=== PATIENT | male | born 1975 | race Caucasian/White ===

== ENCOUNTER 2017-09-16 01:14 | Inpatient (IN) | payer OTHER ==
[~2017-09-16] VITALS: Ht 177.8 cm; Wt 97.5 kg
[2017-09-16 01:20] VITALS: BP 151/99
--- NOTE | 2017-09-16 01:29 | NUR ---
PT AMBULATED TO BED 4
--- NOTE | 2017-09-16 01:30 | NUR ---
PATIENT IS A 42 Y/O MALE WHO PRESENTS TO THE ED C/O ABD PAIN. PT STATES, "MY STOMACH HAS BEEN HURTING FOR ABOUT 1 DAY." PT REPORTS 10/10 ACHING DIFFUSE ABD PAIN THAT DOES NOT RADIATE. PT DENIES CP, SOB, REPORTS VOMITING DENIES NAUSEA/DIARRHEA. PT AAOX4, RR EVEN/UNLABORED. PT REPOSITIONED FOR COMFORT, BED IN LOWEST POSITION. ER MD DR. FRANCO NOTIFIED. WILL CONTINUE TO MONITOR.
--- NOTE | 2017-09-16 01:35 | NUR ---
Dr. Antonio evaluating patient.
[2017-09-16] MEDS ORDERED: NACL 0.9% 1,000 ML IV ONE (01:40)
[2017-09-16] MEDS ORDERED: KETOROLAC 15 MG/ML VIAL IVP ONE (01:40)
[2017-09-16 01:58] LABS: EOSINOPHILS # (AUTO) 0.1 K/uL (0-0.4); EOSINOPHILS % (AUTO) 0.8 % (0.0-4.0); RED CELL DISTRIBUTION WIDTH 11.9 % (11.6-13.7)
[2017-09-16 02:00] LABS: BASOPHILS # (AUTO) 0.4 K/uL (0.00-0.22); BASOPHILS % (AUTO) 3.3 % (0.0-2.0); HEMATOCRIT 45.5 % (36-52); HEMOGLOBIN 15.4 g/dL (12.0-18.0); LYMPHOCYTES # (AUTO) 1.3 K/uL (2.0-11.5); LYMPHOCYTES % (AUTO) 11.8 % (20.5-51.1); MEAN CORPUSCULAR HEMOGLOBIN 29 pg (27-31); MEAN CORPUSCULAR HGB CONC 34 g/dL (33-37); MEAN CORPUSCULAR VOLUME 86 fL (80-94); MONOCYTES # (AUTO) 0.8 K/uL (0.8-1.0); MONOCYTES % (AUTO) 7.5 % (1.7-9.3); NEUTROPHILS # (AUTO) 8.2 K/uL (1.8-7.7); PLATELET COUNT (AUTO) 227 K/uL (140-450); RED BLOOD CELL COUNT(AUTO) 5.31 MIL/uL (4.20-6.10); WHITE BLOOD COUNT (AUTO) 10.8 K/uL (4.8-10.8)
[2017-09-16 02:07] LABS: NEUTROPHILS % (AUTO) 76.6 % (42.2-75.2)
[2017-09-16 02:15] LABS: ALBUMIN 4.4 g/dL (3.4-5.0); ANION GAP 12.5 (8-16); CARBON DIOXIDE 29.3 mmol/L (21-32); CREATININE 0.9 mg/dL (0.7-1.3); POTASSIUM 3.8 mmol/L (3.5-5.1); TOTAL BILIRUBIN 0.6 mg/dL (0.0-1.0)
--- NOTE | 2017-09-16 02:18 | NUR ---
PT RETURN FROM XRAY
--- NOTE | 2017-09-16 02:22 | NUR ---
PT TAKEN TO CT
--- NOTE | 2017-09-16 02:34 | NUR ---
PT RETURN FROM CT
--- NOTE | 2017-09-16 02:44 | NUR ---
Patient appears to be resting comfortably in bed. Vital Signs within normal limits. Respirations even and unlabored.
[2017-09-16] MEDS ORDERED: MORPHINE SULFATE 4 MG/ML SYR IVP ONE ×2 (03:05→04:10)
--- NOTE | 2017-09-16 03:13 | NUR ---
PATIENT RESTING AT THIS TIME. FAMILY AT BEDSIDE.
[2017-09-16] MEDS ORDERED: MORPHINE SULFATE 2 MG/ML SYR IVP PRN (04:20)
[2017-09-16] MEDS ORDERED: DOCUSATE SODIUM 100 MG GELCAP PO PRN (04:20)
[2017-09-16] MEDS ORDERED: HYDROcodone/APAP 7.5/325 MG 1 TAB PO PRN (04:20)
[2017-09-16] MEDS ORDERED: ONDANSETRON 4 MG/2 ML VIAL IM/IVP PRN (04:20)
--- NOTE | 2017-09-16 04:28 | NUR ---
PATIENT RESTING AT THIS TIME. FAMILY AT BEDSIDE.
--- NOTE | 2017-09-16 04:38 | NUR ---
Patient will be admitted to care of DR. FONSECA. Admited to TELE. Will go to room 111B. Belongings list completed. Report to ETHAN CURIEL.
[2017-09-16 04:45] LABS: PROTHROMBIN TIME 11.1 secs (10.8-13.4)
--- NOTE | 2017-09-16 04:50 | NUR ---
RECEIVED REPORT FROM FIELD HOCKEY AND LACROSSE COACH, PT IS A/OX4, ON ROOM AIR. 20G IV ACCESS TO LEFT AC. PT AMBULATES WITH STEADY GAIT, SKIN IS INTACT. UPDATED BOARD. OBTAINED MRSA SWAB AND SENT TO LAB. DISCUSSED PLAN OF CARE WITH PT, PT VERBALIZED UNDERSTANDING. VITAL SIGNS WITHIN NORMAL LIMITS. PT IN STABLE CONDITION, NO SIGNS OF DISTRESS NOTED. BED IN LOWEST POSITION, CALL LIGHT WITHIN REACH. WILL CONTINUE TO MONITOR.
[2017-09-16 05:00] VITALS: BP 152/94
[2017-09-16 05:07] LABS: CHOL/HDL RATIO 3.9 (1-4.5); FREE T4 (FREE THYROXINE) 1.06 ng/dL (0.76-1.46); MAGNESIUM 2.4 mg/dL (1.8-2.4); PHOSPHORUS 3.6 mg/dL (2.5-4.9); THYROID STIMULATING HORMONE 2.55 uIU/mL (0.34-3.74)
[2017-09-16] MEDS: ACETAMINOPHEN 325 MG TAB PO PRN ×2 (05:51→13:09)
[2017-09-16] MEDS: NACL 0.9% 1,000 ML IV SCH ×3 (05:51→21:48)
--- NOTE | 2017-09-16 05:55 | NUR ---
ADMINISTERED SCHEDULED MEDICATIONS AND TYLENOL FOR MILD ABD PAIN, PT TOLERATED WELL.
[2017-09-16] MEDS ORDERED: BISACODYL 10 MG SUPP RC SCH (06:00)
--- NOTE | 2017-09-16 07:20 | NUR ---
RECEIVED REPORT FROM LINK TRAINER NURSE AT BEDSIDE FOR CONTINUITY OF CARE. PATIENT RESTING WITH EYES CLOSED. EASILY WOKEN. FAMILY AT BEDSIDE. NO ACUTE DISTRESS NOTED. AT THIS TIME . PT WITH IVF OF NS @ 120ML/HR TO LAC 20G. . WILL CONT TO MONITOR.
--- NOTE | 2017-09-16 07:55 | NUR ---
INITIAL ASSESSMENT PERFORMED. PATIENT ALERT AND ABLE TO MAKE NEEDS KNOWN. NO ACUTE DISTRESS NOTED. PATIENT WITH LAC 20G WITH IVF NS @120ML/HR. PATENT AND INTACT. LUNG SOUNDS CLEAR X ALL LOBES. BOWEL SOUNDS HYPOACTIVE X 4 QUADS. PATIENT VERBALIZED PAIN IMPROVED STATED 0/10 THIS AM. SKIN INTACT. DISCUSSED PLAN OF CARE AT BEDSIDE. PATIENT VERBALIZED UNDERSTANDING AND AGREEMENT. FAMILY AT BEDSIDE. CALL LIGHT WITHIN REACH. WILL CONT TO MONITOR.
[2017-09-16 08:00] VITALS: BP 128/82
--- NOTE | 2017-09-16 10:15 | NUR ---
PATIENT AWAKE AND ALERT ABLE TO MAKE NEEDS KNOWN. FAMILY AT BEDSIDE. NO ACUTE DISTRESS.DENIES PAIN. WILL CONT TO MONITOR PT.
--- NOTE | 2017-09-16 11:30 | NUR ---
PATIENT SEEN DR HUMPHREY , DISCUSSED PLAN OF CARE WITH PATIENT AT BEDSIDE. PATIENT VERBALIZED UNDERSTANDING. PATIENT REMOVED FROM MACHINE STRIPPER CUTTER DOWNGRADED TO MED/SURG. PATIENT WITH FAMILY AT BEDSIDE. WILL CONT TO MONITOR.
[2017-09-16 12:00] VITALS: BP 129/79
--- NOTE | 2017-09-16 13:09 | NUR ---
ADMINISTERED TYLENOL TO PATIENT FOR MILD PAIN 3/10. PATIENT TOLERATED WELL. WILL CONT TO MONITOR. FAMILY CONT AT BEDSIDE.
--- NOTE | 2017-09-16 14:31 | NUR ---
PATIENT RESTING IN BED WITH EYES CLOSED. NO ACUTE DISTRESS NOTED. RESP EVEN AND UNLABORED. FAMILY AT BEDSIDE. CALL LIGHT WITHIN REACH. WILL CONT TO MONITOR.
[2017-09-16 16:00] VITALS: BP 113/72
--- NOTE | 2017-09-16 16:30 | NUR ---
PATIENT ALERT AND ABLE TO MAKE NEEDS KNOWN. NO ACUTE DISTRESS NOTED. FAMILY AT BEDSIDE. NO C/O PAIN. CALL LIGHT WITHIN REACH. WILL CONT TO MONITOR PT.
--- NOTE | 2017-09-16 18:30 | NUR ---
PT CONT NPO . FAMILY AT BEDSIDE. RESTING WITH EYES CLOSED.PT STABLE. WILL CONT TO MONITOR.
--- NOTE | 2017-09-16 19:25 | NUR ---
REPORT GIVEN TO CORPORATE STRATEGY INTERN NURSE AT BEDSIDE FOR CONT OF CARE.
--- NOTE | 2017-09-16 19:26 | NUR ---
RECEIVED REPORT FROM AM RN. PATIENT A&OX4. PATIENT DENIES PAIN. IV SITE PATENT AND INTACT. NO SIGNS OR SYMPTOMS OF ACUTE DISTRESS NOTED. SAFETY MEASURES ENSURED. CALL LIGHT WITHIN REACH. WILL CONTINUE TO MONITOR.
[2017-09-17] VITALS: BP 114/70
[2017-09-17] MEDS: NACL 0.9% 1,000 ML IV SCH (06:17)
[2017-09-17 06:36] LABS: HEMOGLOBIN 14.3 g/dL (12.0-18.0); MEAN CORPUSCULAR HEMOGLOBIN 29 pg (27-31); MEAN CORPUSCULAR HGB CONC 34 g/dL (33-37); MEAN CORPUSCULAR VOLUME 86 fL (80-94); PLATELET COUNT (AUTO) 197 K/uL (140-450); RED BLOOD CELL COUNT(AUTO) 4.87 MIL/uL (4.20-6.10); RED CELL DISTRIBUTION WIDTH 11.9 % (11.6-13.7); WHITE BLOOD COUNT (AUTO) 6.2 K/uL (4.8-10.8)
[2017-09-17 06:48] LABS: ANION GAP 8.9 (8-16); CARBON DIOXIDE 29.7 mmol/L (21-32); POTASSIUM 3.6 mmol/L (3.5-5.1)
--- NOTE | 2017-09-17 06:50 | NUR ---
PATIENT HAS BEEN SCREENED AND CATEGORIZED MODERATE NUTRITION RISK. PATIENT WILL BE SEEN WITHIN 3-5 DAYS OF ADMISSION. 09/18/17-09/20/17 JASWANT QUINONES MS, RDN
[2017-09-17 06:51] LABS: MAGNESIUM 2.2 mg/dL (1.8-2.4); PHOSPHORUS 2.9 mg/dL (2.5-4.9)
--- NOTE | 2017-09-17 07:00 | NUR ---
RECEIVED REPORT AT BEDSIDE FROM ADDICTION TREATMENT COUNSELOR NURSE FOR CONTINUITY OF CARE. PATIENT RESTING IN BED WITH EYES CLOSED. NO ACUTE DISTRESS NOTED. CONT WITH IV TO LAC 20G. WITH NS RUNNING AT 120ML/HR . WILL CONT TO MONITOR PT.
--- NOTE | 2017-09-17 07:16 | NUR ---
ENDORSED PLAN OF CARE TO AM RN. PATIENT IN STABLE CONDITION.
[2017-09-17 07:57] VITALS: BP 105/65
--- NOTE | 2017-09-17 08:00 | NUR ---
INITIAL ASSESSMENT PERFORMED. PATIENT A/O X4. NO ACUTE DISTRESS NOTED. PATIENT WITH LAC 20G WITH IVF NS @120ML/HR. PATENT AND INTACT. LUNG SOUNDS CLEAR X ALL LOBES. BOWEL SOUNDS ACTIVE X 4 QUADS. PATIENT DENIES PAIN. SKIN INTACT. DISCUSSED PLAN OF CARE AT BEDSIDE. PATIENT VERBALIZED UNDERSTANDING AND AGREEMENT. CONT NPO. CALL LIGHT WITHIN REACH. WILL CONT TO MONITOR.
[2017-09-17 08:05] LABS: BASOPHILS % (MANUAL) 0 % (0-2); EOSINOPHILS % (MANUAL) 1 % (0-4); LYMPHOCYTES % (MANUAL) 36 % (20-46); MONOCYTES % (MANUAL) 8 % (5-12)
--- NOTE | 2017-09-17 09:15 | NUR ---
PATIENT BACK ON REGULAR DIET. ORDERED PATIENT BREAKFAST TRAY .
[2017-09-17 09:30] LABS: T4 (THYROXINE) 7.8 ug/dL (4.5-12.0)
[2017-09-17] MEDS ORDERED: LEVO500T98 PO (09:54)
[2017-09-17] MEDS ORDERED: METR500T1 PO (09:54)
[2017-09-17] MEDS ORDERED: LACT10CA1 PO (09:56)
--- NOTE | 2017-09-17 10:00 | NUR ---
PATIENT TOLERATED BREAKFAST WELL. NO C/O PAIN OR DISCOMFORT AFTER EATING MEAL.
[2017-09-17 10:19] LABS: APPEARANCE,URINE CLEAR (CLEAR); BILIRUBIN,URINE NEGATIVE (NEGATIVE); BLOOD, URINE NEGATIVE (NEGATIVE); COLOR,URINE YELLOW (YELLOW); LEUKOCYTE ESTERASE ,URINE NEGATIVE (NEGATIVE); NITRITE, URINE NEGATIVE (NEGATIVE); PH,URINE 6.5 (5.0-9.0); UGLUCOSE NEGATIVE (NEGATIVE)
[2017-09-17 10:45] LABS: BARBITURATE, URINE NEG. ng/ml (NEG <=200); BENZODIAZEPINE, URINE NEG. ng/mL (NEG <=200); CANNABINOID, URINE NEG. ng/mL (NEG <=50); COCAINE, URINE NEG. ng/mL (NEG <=300); OPIATE, URINE NEG. ng/mL (NEG <=2000); PHENCYCLIDINE SCREEN,URINE NEG. ng/mL (NEG <=25)
--- NOTE | 2017-09-17 11:00 | NUR ---
NEW ORDER FOR PATIENT TO DC HOME . PATIENT MADE AWARE PREPARING DISCHARGE PAPERWORK.
--- NOTE | 2017-09-17 11:40 | NUR ---
DISCUSSED DISCHARGE PAPERWORK WITH PATIENT AT BEDSIDE. PRESENT DURING DISCHARGE PATIENT VERBALIZED UNDERSTANDING AND AGREEMENT. ALL BELONGINGS ACCOUNTED FOR. IV TO LAC DCD. PATIENT TOLERATED WELL. LUMEN INTACT. RX SCRIPTS GIVEN TO PATIENT IN DISCHARGE PAPERWORK. ID BANDS REMOVED. CALL LIGHT WITHIN REACH. WILL CONT TO MONITOR. INSTRUCTED PATIENT TO PUSH CALL LIGHT WHEN READY TO BE ESCORTED TO FRONT LOBBY.
--- NOTE | 2017-09-17 12:00 | NUR ---
PATIENT ESCORTED OUT TO CAR IN FRONT LOBBY WITHOUT DIFFICULTIES. TO DRIVE PATIENT HOME.
== END 2017-09-17 12:00 | disposition home or self-care (01) | DRG 392 ==
LOC: MED 01:14 → MTU 04:19
PROVIDERS: ADMIT Student in an Organized Health Care Education/Training Program; ATTEND Student in an Organized Health Care Education/Training Program
DX: K57.32 Diverticulitis of large intestine without perforation or abscess without bleeding (principal); K56.7 Ileus, unspecified; G47.33 Obstructive sleep apnea (adult) (pediatric); R73.03 Prediabetes; K59.00 Constipation, unspecified; E66.9 Obesity, unspecified; Z68.30 Body mass index [BMI] 30.0-30.9, adult
CPT/HCPCS: 36415; 71045; 74018; 80048; 80053; 80305; 81003; 82150; 82948; 83036; 83690; 83735; 83880; 84100; 84436; 84439; 84443; 84479; 84484; 85025; 85610; 85730; 87081; 96361; 96374; 96375; 96376; 99285; J1885; J2270; J7030; Q0092